=== PATIENT | female | born 1950 | race Caucasian/White ===

== ENCOUNTER 2016-05-09 08:05 | Outpatient (CLI) ==
[2014-11-04 07:31] VITALS: BMI 39.4
[2016-05-09 09:11] LABS: ALBUMIN 3.2 g/dL (3.4-5.0); ALBUMIN/GLOBULIN RATIO 0.89; ANION GAP 12.8; BILIRUBIN,TOTAL 0.25 mg/dL (0.00-1.20); BUN/CREATININE RATIO 17.56; CALCIUM 8.8 mg/dL (8.2-10.2); CREATININE 0.74 mg/dL (0.60-1.30); POTASSIUM 4.8 mmol/L (3.5-5.10); TOTAL PROTEIN 6.8 g/dL (5.8-8.1)
[2016-05-09 09:15] LABS: HEMATOCRIT 36.3 % (37.0-47.0); HEMOGLOBIN 11.1 g/dl (12.0-16.0); MEAN CORPUSCULAR HEMOGLOBIN 28.5 pg (27.0-31.0); MEAN CORPUSCULAR HGB CONC 30.6 (31.8-35.4); MEAN CORPUSCULAR VOLUME 93.3 fl (81.0-99.0); PLATELET COUNT 271 10^3/uL (140-440); RED BLOOD COUNT 3.89 10^6/ul (4.20-5.40); WHITE BLOOD COUNT 7.29 K/ul (4.6-10.2)
[2016-05-09 10:09] LABS: ERYTHROCYTE SEDIMENTATION RATE 26 mm/hr (0-20); ESR INTERNAL QC INTERNAL QC VALID
== END 2016-05-09 08:06 | disposition home or self-care (01) ==
LOC: RAD 08:05
PROVIDERS: ATTEND Family Medicine
DX: Z01.812 Encounter for preprocedural laboratory examination (principal); M05.79 Rheumatoid arthritis with rheumatoid factor of multiple sites without organ or systems involvement
CPT/HCPCS: 36415; 80053; 85027; 85651

== ENCOUNTER 2016-12-31 12:04 | Outpatient (CLI) ==
[2014-11-04 07:31] VITALS: BMI 39.4
--- NOTE | 2016-12-31 12:28 | DI ---
EXAM: Right hand three-view HISTORY: Pain COMPARISON: None FINDINGS: No fracture or dislocation. Mild scattered osteoarthritis No focal soft tissue abnormality . IMPERSSION: Mild osteoarthritis.
== END 2016-12-31 12:05 | disposition home or self-care (01) ==
LOC: RAD 12:04
PROVIDERS: ATTEND Family Medicine
DX: M79.641 Pain in right hand (principal)

== ENCOUNTER 2017-10-08 13:27 | Outpatient (CLI) | payer OTHER ==
[2014-11-04 07:31] VITALS: BMI 39.4
== END 2017-10-08 13:28 | disposition home or self-care (01) ==
LOC: LAB 13:27
PROVIDERS: ATTEND Family Medicine
DX: N39.0 Urinary tract infection, site not specified (principal); R06.02 Shortness of breath; D64.9 Anemia, unspecified; Z79.899 Other long term (current) drug therapy
CPT/HCPCS: 36415; 80053; 81001; 85025; 85651; 87086; 87186

== ENCOUNTER 2018-06-21 10:43 | Outpatient (CLI) ==
[2014-11-04 07:31] VITALS: BMI 39.4
--- NOTE | 2018-06-21 13:52 | DEXA ---
EXAM: Bone densitometry. History: Surgical menopause Findings: Evaluation of the lumbar spine reveals a total bone mineral density of 1.302 grams per centimeter squ ared with T-score of 1.0. Evaluation of the left hip reveals a total bone mineral density of 0.931 grams per centimeter squared with T-score of negative 0.6. Evaluation of the right hip reveals a total bone mineral density of 0.888 grams per centimeter square d with T-score of negative 0.9. FRAX: 10-year probability for major osteoporotic fracture is 10.1% and 1.0% for hip fracture. Impression: Normal bone mineral density of the lumbar spine and bilateral hips
--- NOTE | 2018-06-23 11:02 | MAMMO ---
EXAM: Bilateral digital screening mammogram (2-D and 3-D) History: Screening Comparison: None available. Findings: MLO and CC views of bilateral breasts demonstrate predominately fatty replaced breast pare nchyma. CAD was reviewed by the radiologist. Tomosynthesis was performed. There are no dominant ma sses, no suspicious microcalcifications and no architectural distortions Impression: Negative mammogram. Recommend followup routine screening mammography in 1 year. BIRADS 1, negative
== END 2018-06-21 10:44 | disposition home or self-care (01) ==
LOC: RAD 10:43
PROVIDERS: ATTEND Family Medicine
DX: Z12.31 Encounter for screening mammogram for malignant neoplasm of breast (principal); E89.40 Asymptomatic postprocedural ovarian failure; M05.79 Rheumatoid arthritis with rheumatoid factor of multiple sites without organ or systems involvement; Z78.0 Asymptomatic menopausal state; D50.9 Iron deficiency anemia, unspecified; E79.0 Hyperuricemia without signs of inflammatory arthritis and tophaceous disease; R79.89 Other specified abnormal findings of blood chemistry; I10 Essential (primary) hypertension; E78.2 Mixed hyperlipidemia; J44.1 Chronic obstructive pulmonary disease with (acute) exacerbation; E55.9 Vitamin D deficiency, unspecified; Z00.00 Encounter for general adult medical examination without abnormal findings
CPT/HCPCS: 36415; 80053; 80061; 82043; 82306; 83036; 84443; 84550; 85025; 85651; 86803